=== PATIENT | female | born 1955 | race Caucasian/White ===

== ENCOUNTER → 2023-07-28 | Outpatient (CLI) | payer MEDICARE, OTHER ==
[2023-07-28 10:21] LABS: African American GFR (CKD) >90 (>60 ml/min/1.73 sqM); Blood Urea Nitrogen 17 mg/dL (7-17); Non-African American GFR(CKD) 86 (>60 ml/min/1.73 sqM)
--- NOTE | 2023-07-28 11:56 | CT ---
EXAMINATION TYPE: CT soft tissue neck w con DATE OF EXAM: 07/28/2023 COMPARISON: None HISTORY: 67-year-old female C50.212, breast CA TECHNIQUE: Contiguous axial scanning of the soft tissues of the neck performed with IV Contrast, evangelina ent injected with 100 mL of Isovue 300. Coronal and sagittal reconstructions performed. CT DLP: 1326 mGycm Automated exposure control for dose reduction was used. FINDINGS: Visualized intracranial structures, orbits and globes, paranasal sinuses, and mastoid air cells are w ell pneumatized. Rightward nasal septal deviation. Nasopharynx is clear. There is prominent motion artifact at the level of the nasopharynx and junction with the oropharynx l imiting evaluation here. If concern for any underlying abnormality, direct visualization can be perfo rmed. The glottic and subglottic structures as well as the tracheal column appear clear. The epiglottis and prevertebral soft tissues are satisfactory. No cervical lymphadenopathy identified. There is diffuse lucency and sclerosis throughout the visualized cervical spine. There is a large defect within the left side of the mandible with bridging fixation hardware. Additional extensive heterogeneous density of the visualized sternum. Chest reported separately. IMPRESSION: 1. PROMINENT MOTION AT THE NASOPHARYNX AND JUNCTION WITH THE OROPHARYNX LIMITING ASSESSMENT OF THE CE RVICAL MUCOSAL SPACE HERE. 2. NO CERVICAL LYMPHADENOPATHY OR SUSPICIOUS NECK MASS OTHERWISE IDENTIFIED. 3. FINDINGS SUGGEST DIFFUSE OSSEOUS METASTATIC DISEASE INVOLVING THE VISUALIZED CERVICAL SPINE AND ST [facility]. PREVIOUS RESECTION ALONG THE LEFT SIDE OF THE MANDIBLE.
--- NOTE | 2023-07-28 12:09 | CT ---
EXAMINATION TYPE: CT ChestAbdPelvis w con DATE OF EXAM: 07/28/2023 COMPARISON: None HISTORY: 67-year-old female C50.212, breast cancer TECHNIQUE: Contiguous axial scanning of the chest, abdomen, pelvis performed with IV Contrast, patien t injected with 100 mL of Isovue 300. Delayed images through the kidneys were obtained. Coronal/sagit kathleen reconstructions performed. CT DLP: 1326 mGycm Automated exposure control for dose reduction was used. FINDINGS: Chest: Heart upper limits of normal size without pericardial effusion. LAD and RCA coronary calcifications a re present. Ectatic ascending aorta 3.7 cm. Convex shortness of branching anatomy. No thoracic lymphadenopathy by CT size criteria. Lungs show mild emphysematous change. Bandlike atelectasis or scarring at the right base. No consolid ation or pleural effusion. ABDOMEN: There are approximately 17 hypodense hepatic lesions, largest measuring 1.4 cm. Portal venous system is patent. Heterogeneous nodularity right adrenal gland measuring 1.8 x 1.0 cm there is symmetric uptake and exc retion of contrast from the kidneys. Spleen within normal limits. There is dilatation of the main pancreatic duct up to 5 mm but no distal obstructing lesion seen. Mil d upstream pancreatic atrophy. Mild to moderate atherosclerotic calcifications throughout the abdominal aorta and iliac arteries. Th ere is fusiform dilatation right common iliac artery up to 1.6 cm. No dilated small bowel, free fluid, or free air. No mesenteric or retroperitoneal lymphadenopathy. Normal appendix. Oral contrast progressed to the sigmoid colon. Ztrd-[id number]-[id number] stool in the sigmoid colon and rectum. Sigmoid diverticulosis. No pericolic inflammatory change. PELVIS: Mild circumferential bladder wall thickening. Bladder partially distended. Right-sided pelvic phlebol iths. Uterus anteverted. Both ovaries are visualized. No abnormal fluid collection in the pelvis or p elvic lymphadenopathy seen. BONES: Scattered areas of heterogeneous sclerosis and lucency throughout the pelvis, sacrum and visualized s pine and sternum. Also scattered throughout the bilateral ribs and left scapula. Superior endplate Sc hmorl's nodes or deformities T11 and T12. IMPRESSION: 1. DIFFUSE OSSEOUS METASTATIC DISEASE. 2. ADDITIONAL HEPATIC METASTASES. APPROXIMATELY 17 LIVER METASTASES ARE PRESENT, LARGEST MEASURING 1. 4 CM. 3. A 1.1 X 1.0 CM RIGHT ADRENAL GLAND NODULE MAY ALSO BE SUSPICIOUS. 4. DILATATION OF THE MAIN PANCREATIC DUCT UP TO 5 MM BUT WITHOUT ANY DISTAL OBSTRUCTING LESION SEEN. FINDINGS MAY BE DUE TO SOME UNDERLYING AMPULLARY STENOSIS. CORRELATE WITH TUMOR MARKERS AND AMYLASE/L IPASE LEVELS. ATTENTION ON FOLLOW-UP CT. 5. INCIDENTAL: COPD WITH MILD EMPHYSEMA, SIGMOID DIVERTICULOSIS, MILD TO MODERATE DISTAL COLONIC STOO L. 5. MILD CIRCUMFERENTIAL BLADDER WALL THICKENING MAY BE CHRONIC FOR THE PATIENT. CORRELATE TO EXCLUDE CYSTITIS.
--- NOTE | 2023-07-28 15:44 | NM ---
EXAMINATION TYPE: NM bone scan whole body DATE OF EXAM: 07/28/2023 COMPARISON: Correlation CT same day CLINICAL INDICATION: Female, 67 years old with history of C50.212 breast ca; Delayed whole-body scanning was performed following the injection of 23.2 mCi Tc 99m MDP. Images acq uired 3.5 hours post injection. FINDINGS: Intense foci of increased activity are present throughout the sternum, spine, right greater than left hemipelvis, right greater than left proximal to mid femurs, scattered throughout the ribs, and at th e left shoulder. IMPRESSION: Diffuse osseous metastatic disease.
== END | disposition home or self-care (01) ==
LOC: RADNMMAIN 09:36
PROVIDERS: ATTEND Internal Medicine Hematology & Oncology
DX: C50.212 Malignant neoplasm of upper-inner quadrant of left female breast (principal); M87.80 Other osteonecrosis, unspecified bone; I10 Essential (primary) hypertension; F32.A Depression, unspecified
CPT/HCPCS: 82565; 84520; 70491; 71260; 74177; 36415; 78306; A9503; Q9967

== ENCOUNTER → 2024-01-04 | Outpatient (CLI) | payer MEDICARE, OTHER ==
[2024-01-04 11:01] LABS: African American GFR (CKD) >90 (>60 ml/min/1.73 sqM); Blood Urea Nitrogen 15 mg/dL (7-17); Non-African American GFR(CKD) 79 (>60 ml/min/1.73 sqM)
--- NOTE | 2024-01-04 14:21 | CT ---
EXAMINATION TYPE: CT ChestAbdPelvis w con DATE OF EXAM: 01/04/2024 COMPARISON: 07/28/2023 HISTORY: 68-year-old female C50.212, breat ca/mets TECHNIQUE: Contiguous axial scanning of the chest, abdomen, and pelvis performed with IV Contrast, pa tient injected with 100 mL of Isovue 300. Delayed images through the kidneys were obtained. Coronal/s agittal reconstructions performed. CT DLP: 1051 mGycm Automated exposure control for dose reduction was used. FINDINGS: Chest: The heart is upper limits of normal in size without pericardial effusion. Ectatic ascending aorta 3.6 cm. Mild atherosclerotic calcifications throughout. Conventional arch ves tasha branching anatomy. No thoracic lymphadenopathy by CT size criteria. Mild emphysematous change. Minimal right apical pleural parenchymal scarring is unchanged. Some mild strandy atelectasis or scarring at the lung bases. No consolidation or pleural effusion. ABDOMEN: Numerous hypodense hepatic lesions are redemonstrated. A few smaller lesions may be new. Other lesion s that were previously present show slight interval increase in size measuring up to 1.7 cm inferior right liver lobe versus 1.4 cm, previously. 1.4 cm left liver lobe versus 1.1 cm, previously. Portal venous system is patent. There appears to be progressive dilatation of the main pancreatic duct canal to 1.1 cm versus 5 mm, p reviously. Consider ERCP evaluation. Bile duct is also prominent now 9 mm, increased from prior. Port al venous system is patent. Gallbladder shows no abnormal distention. Right adrenal nodularity currently 1.8 x 1.3 cm versus 1.8 x 1.0 cm, previously. Not significantly ch anged. Bilateral extra renal pelvis. Symmetric uptake and excretion of contrast from both kidneys. Left adrenal gland, and spleen within normal limits. Moderate atherosclerotic calcifications throughout the abdominal aorta and iliac arteries. No dilated small bowel, free fluid, or free air. No mesenteric or retroperitoneal adenopathy. Normal appendix. No significant stool burden. Oral contrast progressed to the rectum. Pelvis: Moderate circumferential bladder wall thickening. Uterus anteverted. Suspect visualization of the ova elgin. Pelvic phleboliths. No abnormal fluid collection in the pelvis or pelvic lymphadenopathy. Bones: Demonstrated diffuse mixed sclerosis and lucencies throughout the visualized osseous structures. IMPRESSION: 1. REDEMONSTRATED DIFFUSE OSSEOUS METASTATIC DISEASE WITH OVERALL SIMILAR APPEARANCE OF THE BONES COM PARED TO 07/28/2023. 2. HEPATIC METASTASES SHOW SLIGHT INTERVAL INCREASE IN BOTH NUMBER AND SIZE OF LESIONS. MEASURING UP TO 1.7 CM CURRENTLY VERSUS 1.4 CM, PREVIOUSLY. 3. PROGRESSIVE DILATATION OF THE BILE DUCT (NOW 9 MM) WELL THE MAIN PANCREATIC DUCT. THE MAIN P ANCREATIC DUCT IS NOW 11 MM VERSUS 5 MM, PREVIOUSLY. NO OBVIOUS OBSTRUCTING LESION IS IDENTIFIED. CON CINDER BLOCK MASON FURTHER ERCP EVALUATION IF INDICATED. 4. SIMILAR TO SLIGHTLY LARGER RIGHT ADRENAL NODULARITY AT 1.8 X 1.3 CM.
== END | disposition home or self-care (01) ==
LOC: RADCTMAIN 10:18
PROVIDERS: ATTEND Internal Medicine Hematology & Oncology
DX: C78.7 Secondary malignant neoplasm of liver and intrahepatic bile duct (principal); C50.212 Malignant neoplasm of upper-inner quadrant of left female breast; M87.80 Other osteonecrosis, unspecified bone; I10 Essential (primary) hypertension; F32.A Depression, unspecified
CPT/HCPCS: 82565; 84520; 71260; 74177; 36415; Q9967

== ENCOUNTER → 2024-02-22 | Outpatient (CLI) | payer MEDICARE, OTHER ==
--- NOTE | 2024-03-20 09:22 | CT ---
Camila Langford [id number] : 1955 Age/Gender: 68Y, F EXAMINATION TYPE: CT abdomen pelvis w con CT DLP: 846 mGycm, Automated exposure control for dose reduction was used. DATE OF EXAM: 02/29/2024 3:35 PM COMPARISON: 01/04/2024 , 07/28/2023. CLINICAL INDICATION: Breast cancer TECHNIQUE: Axial CT abdomen pelvis w con;Sagittal and coronal reformats were created on a separate w orkstation. Contrast used: 100 cc of Isovue 300 Oral contrast used: (none if empty) FINDINGS: LOWER CHEST: Unremarkable ABDOMEN LIVER: Scattered metastatic lesions throughout the liver which appear more numerous and larger compar ed to prior example includes 17 mm left hepatic lobe lesion previously 13 mm. Right hepatic lobe candelaria nant lesion measuring 17 mm on prior now measuring 21 mm. Evaluation of other smaller lesions slight ly difficult given differences in bolus timing. There may be new lesions scattered throughout the brent[place] er. GALLBLADDER AND BILE DUCTS: Unremarkable. PANCREAS: Similar dilation of the main pancreatic duct up to 10 mm. SPLEEN: Unremarkable. ADRENAL GLANDS: Right adrenal gland thickening measuring 22 x 13 mm is difficult to compare given dif ferences in slice selection. Possibly slightly increased in size from immediate prior, from 07/28/2023 has definitely increased in size prior measuring 18 x 10 mm. KIDNEYS AND URETERS: No evidence of hydronephrosis or renal calculus. The ureters are unremarkable. PELVIS BLADDER: Unremarkable REPRODUCTIVE: Unremarkable. ABDOMEN & PELVIS STOMACH AND BOWEL: No evidence of bowel obstruction. PERITONEUM/RETROPERITONEUM: No evidence of pneumoperitoneum or free fluid. VASCULATURE: Moderate atherosclerotic calcifications are present throughout the abdominal aorta and i ts branches. No evidence of aortic aneurysm. MUSCULOSKELETAL: Abnormal appearance osseous structures compatible with metastatic disease LYMPH NODES: No gross evidence for lymphadenopathy. SOFT TISSUE/ABDOMINAL WALL: Unremarkable IMPRESSION: 1. Enlarging lesions throughout the liver with possible new small lesions concerning for progression of disease. 2. Diffuse osseous metastatic disease present with diffuse abnormal appearance of the osseous struct ures. 3. Enlarging right adrenal nodule concerning for progression of disease.
== END | disposition home or self-care (01) ==
LOC: RADCTMAIN 12:00
PROVIDERS: ATTEND Internal Medicine Hematology & Oncology
DX: C50.212 Malignant neoplasm of upper-inner quadrant of left female breast (principal); M87.80 Other osteonecrosis, unspecified bone; F32.A Depression, unspecified; R16.0 Hepatomegaly, not elsewhere classified
CPT/HCPCS: 74177; 36415; Q9967

== ENCOUNTER → 2024-06-10 | Outpatient (CLI) | payer MEDICARE, OTHER ==
[2024-06-10 11:48] LABS: African American GFR (CKD) 72 (>60 ml/min/1.73 sqM); Blood Urea Nitrogen 16 mg/dL (7-17); Non-African American GFR(CKD) 63 (>60 ml/min/1.73 sqM)
--- NOTE | 2024-06-10 14:02 | CT ---
EXAMINATION TYPE: CT soft tissue neck w con CT DLP: 1002.5 mGycm, Automated exposure control for dose reduction was used. DATE OF EXAM: 06/10/2024 1:26 PM COMPARISON: CT soft tissue neck 07/28/2023, nuclear medicine bone scan 07/28/2023. CLINICAL INDICATION:Female, 68 years old with history of [id number] Breast cancer; [facility], Stage IV breast c a. TECHNIQUE: Standard enhanced CT of the neck following intravenous administration of 100 cc of Isovue 300. Axial sections with coronal and sagittal reformats were obtained. FINDINGS: Brain: Visualized portions are grossly unremarkable. Orbits: Unremarkable Sinuses: Grossly unremarkable. Rightward nasal septal deviation. Suprahyoid Neck: The oropharynx, oral cavity, parapharyngeal and retropharyngeal spaces are clear and symmetric. The nasopharynx is unremarkable. Infrahyoid Neck: The larynx, hypopharynx, and supraglottic area are clear and symmetric. Parotid Glands: Parotid gland is unremarkable. Atrophy and/or postsurgical change of the left parotid gland. Submandibular Glands: Unremarkable. Musculoskeletal: No acute osseous pathology. There is again diffuse lucency and sclerosis throughout the visualized cervical spine. Multilevel degenerative disc disease of the cervical spine. Increased heterogenous sclerotic appearance of the C3 vertebral body. Redemonstration of large defect within th e left side of the mandible with bridging fixation hardware. Additional extensive heterogenous appear ance of the visualized sternum. Lymph nodes: No pathologically enlarged lymph nodes identified.. Vascular structures: Minimal atherosclerotic calcifications of the internal carotid arteries. Thoracic Inlet/airway: Airway is patent. The lung apices are clear. Soft tissues/Thyroid: Thyroid and remainder of the soft tissues are unremarkable. Other: none. IMPRESSION 1. No cervical lymphadenopathy or suspicious neck mass. 2. Diffuse osseous metastatic disease involving the visualized cervical spine and sternum redemonstra rome. There are suggested progression of osseous metastasis with new sclerotic appearance of the C3 ve rtebral body. Previous resection along the left side of the mandible redemonstrated. [facility], , 06/10/2024 1:59 PM
--- NOTE | 2024-06-10 16:43 | CT ---
EXAMINATION TYPE: CT ChestAbdPelvis w con CT DLP: 1002.5 mGycm, Automated exposure control for dose reduction was used. DATE OF EXAM: 06/10/2024 1:26 PM COMPARISON: CT chest abdomen pelvis 01/04/2024, 07/28/2023, CT abdomen and pelvis 03/16/2024 CLINICAL INDICATION:Female, 68 years old with history of [id number] Breast cancer; PH, Stage IV breast c a. Technique: Multiple axial images of the chest, abdomen, and pelvis were obtained following the intrav enous administration of 100 mL Isovue-300. Oral contrast was administered. Two-dimensional coronal an d sagittal reconstructions were obtained. Findings: CHEST: LUNGS/ PLEURA: No pleural effusion, pneumothorax, focal consolidation. Few scattered regions of linea r scarring and/or atelectasis. No suspicious pulmonary nodule or mass. AIRWAY: Patent and unremarkable.. HEART: Size within normal limits.No pericardial effusion. Small coronary artery calcifications. MEDIASTINUM: No evidence of adenopathy. VASCULATURE: Stable aneurysm dilatation ascending thoracic aorta measuring up to 4.0 cm. Mild athero sclerotic calcification of the aorta and its branches. MUSCULOSKELETAL: No acute osseous abnormalities. Diffuse mixed sclerotic/lucent metastasis throughout the visualized osseous structures are demonstrated. Dextro scoliotic curvature of the lumbar spine. SOFT TISSUES/LYMPH NODES: Unremarkable. LOWER NECK: No significant findings. ABDOMEN: ABDOMEN LIVER: Decreased size and number of hypodense hepatic metastasis from prior examination with largest now measuring up to 8 mm within the right hepatic lobe (series 5, image 63). GALLBLADDER AND BILE DUCTS: Bladder appears unremarkable. Mild dilatation of the common bile duct to 9 mm. No intrahepatic biliary ductal dilatation. PANCREAS: Similar dilatation of main pancreatic duct up to 10 mm. SPLEEN: Unremarkable. ADRENAL GLANDS: Left adrenal gland is unremarkable. Similar mild thickening of the right adrenal glan d. KIDNEYS AND URETERS: No evidence of hydronephrosis or renal calculus. The kidneys enhance symmetrical ly. Contrast is demonstrated within both collecting systems on the delayed phase. PELVIS BLADDER: Unremarkable REPRODUCTIVE: Retroverted uterus. ABDOMEN & PELVIS STOMACH AND BOWEL: Stomach and duodenum are unremarkable. Enteric contrast reaches the ascending colo n. Distal colonic diverticulosis without evidence for acute diverticulitis. No evidence of bowel obst ruction. PERITONEUM: No evidence of pneumoperitoneum or free fluid. VASCULATURE: Moderate atherosclerotic calcifications are present throughout the abdominal aorta and i ts branches. No abdominal aortic aneurysm. Pelvic phleboliths. MUSCULOSKELETAL: No acute osseous abnormalities. Diffuse mixed sclerotic/lucent metastasis throughout the visualized osseous structures are demonstrated. Prominent Schmorl's node involving the superior endplates of the T12 and L1 vertebral bodies. LYMPH NODES: No evidence for lymphadenopathy. SOFT TISSUE/ABDOMINAL WALL: Tiny fat filled umbilical hernia. IMPRESSION: 1. Decreased size and number of hepatic metastasis from prior examination suggesting positive respon se to therapy. 2. Redemonstration of diffuse osseous metastatic disease which is overall similar to prior exam. 3. Similar extrahepatic biliary ductal and main pancreatic ductal dilatation. No obvious obstructing lesion identified. Consider further evaluation with ERCP as clinically indicated. 4. Stable thickening of the right adrenal gland. [facility], , 06/10/2024 4:40 PM
== END | disposition home or self-care (01) ==
LOC: RADCTMAIN 10:52
PROVIDERS: ATTEND Internal Medicine Hematology & Oncology
DX: C50.212 Malignant neoplasm of upper-inner quadrant of left female breast (principal); M87.80 Other osteonecrosis, unspecified bone; I10 Essential (primary) hypertension; F32.A Depression, unspecified; C79.51 Secondary malignant neoplasm of bone; I65.29 Occlusion and stenosis of unspecified carotid artery; J34.2 Deviated nasal septum; C78.7 Secondary malignant neoplasm of liver and intrahepatic bile duct; K42.9 Umbilical hernia without obstruction or gangrene
CPT/HCPCS: 82565; 84520; 70491; 71260; 74177; 36415; Q9967

== ENCOUNTER → 2024-09-02 | Outpatient (CLI) | payer MEDICARE, OTHER ==
[2024-09-02 13:36] LABS: African American GFR (CKD) 85 (>60 ml/min/1.73 sqM); Blood Urea Nitrogen 15 mg/dL (7-17); Non-African American GFR(CKD) 73 (>60 ml/min/1.73 sqM)
--- NOTE | 2024-09-02 14:24 | CT ---
EXAMINATION TYPE: CT ChestAbdPelvis w con DATE OF EXAM: 09/02/2024 2:00 PM COMPARISON: 06/10/2024 CLINICAL INDICATION: Female, 69 years old with history of C50.212 BREAST CANCER; [facility], Breast cancer. Technique: CT ChestAbdPelvis w con; Multiple axial images were obtained. Two-dimensional coronal and sagittal reconstructions were obtained. Contrast used:100ml mL of Isovue 300 with IV Contrast, (None if empty) Oral contrast used: with Oral Contrast CT DLP: 506.3 mGycm, Automated exposure control for dose reduction was used. Findings: . CHEST: LUNGS/ PLEURA: No pleural effusion, pneumothorax, focal consolidation. Few scattered regions of linea r scarring and/or atelectasis. No suspicious pulmonary nodule or mass. AIRWAY: Patent and unremarkable.. HEART: Size within normal limits.No pericardial effusion. Small coronary artery calcifications. MEDIASTINUM: No evidence of adenopathy. VASCULATURE: Stable aneurysm dilatation ascending thoracic aorta measuring up to 4.0 cm. Mild athero sclerotic calcification of the aorta and its branches. MUSCULOSKELETAL: No acute osseous abnormalities. Diffuse mixed sclerotic/lucent metastasis throughout the visualized osseous structures are demonstrated. Dextro scoliotic curvature of the lumbar spine. SOFT TISSUES/LYMPH NODES: Unremarkable. LOWER NECK: No significant findings. ABDOMEN: ABDOMEN LIVER: Hypodense lesions in liver have increased in size and number compared to prior. Example includ es right hepatic lobe segment 6 18 mm previously 5 mm, left hepatic lobe 25 mm previously 3 mm. GALLBLADDER AND BILE DUCTS: Bladder appears unremarkable. Similar mild dilatation of the common bile duct to 9 mm. No intrahepatic biliary ductal dilatation. PANCREAS: Stable dilatation of main pancreatic duct up to 10 mm. SPLEEN: Unremarkable. ADRENAL GLANDS: Left adrenal gland is unremarkable. Stable mild thickening of the right adrenal gland . KIDNEYS AND URETERS: No evidence of hydronephrosis or renal calculus. The kidneys enhance symmetrical ly. Contrast is demonstrated within both collecting systems on the delayed phase. PELVIS BLADDER: Unremarkable REPRODUCTIVE: Retroverted uterus. ABDOMEN & PELVIS STOMACH AND BOWEL: Scattered colonic diverticula. Stomach and duodenum are unremarkable. No evidence of bowel obstruction. PERITONEUM: No evidence of pneumoperitoneum or free fluid. VASCULATURE: Moderate atherosclerotic calcifications are present throughout the abdominal aorta and i ts branches. No abdominal aortic aneurysm. Pelvic phleboliths. MUSCULOSKELETAL: No acute osseous abnormalities. Diffuse mixed sclerotic/lucent metastasis throughout the visualized osseous structures are demonstrated. Prominent Schmorl's node involving the superior endplates of the T12 and L1 vertebral bodies. LYMPH NODES: No evidence for lymphadenopathy. SOFT TISSUE/ABDOMINAL WALL: Tiny fat filled umbilical hernia. IMPRESSION: 1. Progression of metastatic disease within the liver with increasing size and number of lesions. Co nsideration for PET/CT may be of benefit to fine more areas of active metastatic disease. 2. Redemonstration of diffuse osseous metastatic disease which is overall similar to prior exam. 3. Stable extrahepatic biliary ductal and main pancreatic ductal dilatation. No obvious obstructing lesion identified. Consider further evaluation with ERCP as clinically indicated. 4. Stable thickening of the right adrenal gland. [facility], , 09/02/2024 2:22 PM
== END | disposition home or self-care (01) ==
LOC: RADCTMAIN 11:21
PROVIDERS: ATTEND Internal Medicine Hematology & Oncology
DX: C50.212 Malignant neoplasm of upper-inner quadrant of left female breast (principal); C78.7 Secondary malignant neoplasm of liver and intrahepatic bile duct; C79.51 Secondary malignant neoplasm of bone; M87.80 Other osteonecrosis, unspecified bone; I10 Essential (primary) hypertension; F32.A Depression, unspecified
CPT/HCPCS: 82565; 84520; 71260; 74177; 36415; Q9967

== ENCOUNTER → 2024-09-20 | Outpatient (CLI) | payer MEDICARE, OTHER ==
--- NOTE | 2024-09-20 12:08 | CA ---
Transthoracic Echo Report Name: Camila Langford Age: 69 Gender: F : 1955 Exam Date: 09/20/2024 07:53 Exam Location: [facility] Ht (in): 59 Wt (lb): 117 Ordering Physician: Julita Muhammad MD Attending/Referring Phys: Julita Muhammad MD Acetylene Torch Solderer Bel Acosta RDCS Procedure CPT: Indications: Z01.818 ENCOUNTER FOR OTHER PREPROCEDURAL EXAMINAT Cardiac Hx: Technical Quality: Good Contrast 1: Total Dose (mL): Contrast 2: Total Dose (mL): MEASUREMENTS (Male / Female) Normal Values 2D ECHO LV Diastolic Diameter PLAX 3.6 cm 4.2 - 5.9 / 3.9 - 5.3 cm LV Systolic Diameter PLAX 2.0 cm IVS Diastolic Thickness 1.3 cm 0.6 - 1.0 / 0.6 - 0.9 cm LVPW Diastolic Thickness 1.1 cm 0.6 - 1.0 / 0.6 - 0.9 cm LV Relative Wall Thickness 0.7 RV Internal Dim ED PLAX 2.5 cm LA Systolic Diameter LX 3.0 cm 3.0 - 4.0 / 2.7 - 3.8 cm LV Diastolic Volume MOD BP 43.4 cm??? 67 - 155 / 56 - 104 cm??? LV Systolic Volume MOD BP 10.1 cm??? 22 - 58 / 19 - 49 cm??? LV Ejection Fraction MOD BP 76.7 % >= 55 % LV Cardiac Index MOD BP 1536.3 cm???/min???m??? LV Diastolic Volume MOD 4C 45.7 cm??? LV Systolic Volume MOD 4C 13.3 cm??? LV Ejection Fraction MOD 4C 70.8 % LV Cardiac Index MOD 4C 1490.9 cm???/min???m??? LV Diastolic Length 4C 6.6 cm LV Systolic Length 4C 5.2 cm LV Diastolic Volume MOD 2C 41.3 cm??? LV Systolic Volume MOD 2C 7.8 cm??? LV Ejection Fraction MOD 2C 81.1 % LV Cardiac Index MOD 2C 1543.5 cm???/min???m??? LV Diastolic Length 2C 6.7 cm LV Systolic Length 2C 5.2 cm LA Volume 17.9 cm??? 18 - 58 / 22 - 52 cm??? LA Volume Index 11.9 cm???/m??? 16 - 28 cm???/m??? M-MODE Aortic Root Diameter MM 3.1 cm LA Systolic Diameter MM 2.9 cm LA Ao Ratio MM 0.9 AV Cusp Separation MM 1.7 cm DOPPLER MV Area PHT 2.1 cm??? Mitral E Point Velocity 52.9 cm/s Mitral A Point Velocity 82.6 cm/s Mitral E to A Ratio 0.6 MV Deceleration Time 366.5 ms TR Peak Velocity 243.7 cm/s TR Peak Gradient 23.8 mmHg Right Ventricular Systolic Press 28.2 mmHg FINDINGS Left Ventricle Left ventricular ejection fraction is estimated at 55-60%. Mildly increased septal wall thickness. Mildly increased posterior wall thickness. Normal left ventricular systolic function with no obvious regional wall motion abnormalities. Left ventricular cavity size normal. Average global longitudinal strain of the left ventricle with a value of - 18.9 %. Right Ventricle Normal right ventricular size and function. Right ventricular systolic pressure within normal limits. Right Atrium Normal right atrial size. Left Atrium Normal left atrial size. Mitral Valve Structurally normal mitral valve. Trace to mild mitral regurgitation.no mitral stenosis. Aortic Valve Trileaflet aortic valve. No aortic valve stenosis or regurgitation. Tricuspid Valve Structurally normal tricuspid valve. Mild tricuspid regurgitation. No tricuspid stenosis. Pulmonic Valve Structurally normal pulmonic valve. Trace pulmonic regurgitation. No pulmonic stenosis. Pericardium No pericardial or pleural effusion. Aorta Normal size aortic root and proximal ascending aorta. CONCLUSIONS Left ventricular ejection fraction 55-60% Mildly increased left ventricular wall thickness RVSP 28 Trace mild mitral regurgitation Mild tricuspid regurgitation Previewed by: Dr. Angel Miles DO (Electronically Signed) Final Date: 20 September 2024 12:07
== END | disposition home or self-care (01) ==
LOC: RADECHMAIN 08:48
PROVIDERS: ATTEND Internal Medicine Hematology & Oncology
DX: Z01.818 Encounter for other preprocedural examination (principal); C50.212 Malignant neoplasm of upper-inner quadrant of left female breast; I08.1 Rheumatic disorders of both mitral and tricuspid valves; M87.80 Other osteonecrosis, unspecified bone; I10 Essential (primary) hypertension; F32.A Depression, unspecified
CPT/HCPCS: 93306

== ENCOUNTER 2024-10-14 16:51 | Emergency (ER) | payer MEDICARE, OTHER ==
[2024-10-14 17:10] VITALS: RESP 18
[2024-10-14] MEDS: LIDOCAINE 1% INJ 10MG/ML (20 ML MDV) SQ ONE (18:01)
[2024-10-14] MEDS: TOPICAL SKIN ADHESIVE 1 EACH AMP TOPICAL ONE (18:02)
[2024-10-14] MEDS: HYDROmorphone 0.5 MG/0.5 ML SYRINGE IVP STA ×2 (18:08→19:46)
[2024-10-14 18:18] LABS: Basophils % (A) 0 %; Eosinophils # (A) 0.2 k/uL (0-0.7); Eosinophils % (A) 2 %; HCT 42.7 % (34.0-46.0); HGB 13.7 gm/dL (11.4-16.0); Lymphocytes # (A) 0.7 k/uL (1.0-4.8); Lymphocytes % (A) 8 %; MCH 32.5 pg (25.0-35.0); MCV 101.8 fL (80.0-100.0); Macrocytosis Slight; Mean Platelet Volume 7.7; Monocytes # (A) 0.5 k/uL (0-1.0); Monocytes % (A) 6 %; Neutrophils % (A) 83 %; Platelet Count 325 k/uL (150-450); RDW 14.2 % (11.5-15.5); WBC 8.4 k/uL (3.8-10.6)
--- NOTE | 2024-10-14 18:18 | ED ---
Fall HPI - General Chief Complaint: Fall Stated Complaint: fell facial injuries Time Seen by Provider: 10/14/24 17:03 Source: patient, RN notes reviewed Mode of arrival: ambulatory Limitations: no limitations - History of Present Illness Initial Comments: This is a 69-year-old female with history of metastatic breast cancer and left jaw resection presenting with trip and fall onto face. Patient states she leaned over too far, falling forward and striking the left side of her face on asphalt without loss of consciousness. Endorses swelling of left side of face, damage to teeth and upper lip pain/tenderness as well as frontal headache (7/10). Patient denies use of blood thinners. States she is currently receiving chemotherapy for her metastatic breast cancer. Patient denies loss of consciousness, neck pain, other injuries, extremity weakness/paresthesia. Denies chest pain, dyspnea, dizziness, visual changes, nausea/vomiting. MD Complaint: fall Onset/Timin -: hour(s) Fall From: standing When Fall Occurred: 1 hour [employer] Fall Witnessed: yes, by family Place Fall Occurred: street Loss of Consciousness: none Prolonged Down Time?: no Symptoms Prior to Fall: none Location: face Severity scale (1-10): 7 Quality: sharp Context: tripped/slipped Associated Symptoms: headache - Related Data Home Medications Medication Instructions Recorded Confirmed Capecitabine 500mg 1,500 mg PO DIRECTED 10/14/24 10/14/24 Gabapentin [Neurontin] 300 mg PO TID 10/14/24 10/14/24 Sertraline [Zoloft] 100 mg PO DAILY 10/14/24 10/14/24 oxyCODONE HCL [oxyCODONE HCL (IR)] 30 mg PO Q4H PRN 10/14/24 10/14/24 Allergies Allergy/AdvReac Type Severity Reaction Status Date / Time No Known Allergies Allergy Verified 10/14/24 20:16 Review of Systems ROS Statement: Those systems with pertinent positive or pertinent negative responses have been documented in the HPI. ROS Other: All systems not noted in ROS Statement are negative. Past Medical History Past Medical History: Cancer Additional Past Medical History / Comment(s): metatstatic breast cancer History of Any Multi-Drug Resistant Organisms: None Reported Additional Past Surgical History / Comment(s): jaw resection Past Psychological History: No Psychological Hx Reported, Depression Smoking Status: Current every day smoker Past Alcohol Use History: Daily Past Drug Use History: Marijuana General Exam General appearance: alert, in no apparent distress Head exam: Present: atraumatic, normocephalic, normal inspection Eye exam: Present: normal appearance, PERRL, EOMI. Absent: scleral icterus, conjunctival injection, periorbital swelling, periorbital tenderness ENT exam: Present: mucous membranes moist, TM's normal bilaterally, normal external ear exam (Negative Causey sign), other (Positive moderate left maxillary edema without TTP. Loose/painful bilateral frontal incisors and fractured/damage right lateral incisor. Deep 3 cm horizontal laceration noted on upper inner lip. Several small lacerations noted on anterior aspect of upper lip) Neck exam: Present: normal inspection. Absent: tenderness, meningismus, lymphadenopathy Respiratory exam: Present: normal lung sounds bilaterally. Absent: respiratory distress, wheezes, rales, rhonchi, stridor, chest wall tenderness, accessory muscle use, decreased breath sounds, prolonged expiratory Cardiovascular Exam: Present: regular rate, normal rhythm, normal heart sounds. Absent: systolic murmur, diastolic murmur, rubs, gallop, clicks GI/Abdominal exam: Present: soft, normal bowel sounds. Absent: distended, tenderness, guarding, rebound, rigid Extremities exam: Present: normal inspection, full ROM, normal capillary refill, other (Distal neurovascular motor function of all upper extremities intact). Absent: tenderness, pedal edema, joint swelling, calf tenderness Back exam: Present: normal inspection. Absent: tenderness, paraspinal tenderness, vertebral tenderness Neurological exam: Present: alert, oriented X3, CN II-XII intact. Absent: motor sensory deficit Psychiatric exam: Present: normal affect, normal mood Skin exam: Present: warm, dry, intact, normal color. Absent: rash Course Vital Signs 10/14/24 10/14/24 17:03 20:12 Temperature 98.6 F Pulse Rate 67 57 L Respiratory 18 18 Rate Blood Pressure 154/89 139/80 O2 Sat by Pulse 97 96 Oximetry Procedures - Laceration Laceration #1 Consent Obtained: verbal consent Indication: laceration Site: lip Size (cm): 3 Description: linear, irregular Depth: simple, single layer Anesthetic Used: lidocaine 1% Anesthesia Technique: local infiltration Amount (mls): 5 Pre-repair: wound explored, irrigated extensively Type of Sutures: vicryl Size of Sutures: 5-0 Number of Sutures: 8 Technique: running Patient Tolerated Procedure: well, no complications Laceration #2 Consent Obtained: verbal consent Indication: laceration Site: face Size (cm): 1 Description: irregular Depth: simple, single layer Pre-repair: wound explored, irrigated extensively Complications: pain Patient Tolerated Procedure: well, no complications Additional Comments: Several small irregular, shallow facial lacerations of upper lip cleaned copiously with antibacterial soap and water and adhered with Dermabond. Medical Decision Making - Medical Decision Making Was pt. sent in by a medical professional or institution (, PA, [employer], urgent care, hospital, or half-way...) When possible be specific @ -No Did you speak to anyone other than the patient for history (EMS, parent, family, police, friend...)? What history was obtained from this source @ -No Did you review nursing and triage notes (agree or disagree)? Why? @ -I reviewed and agree with nursing and triage notes Were old charts reviewed (outside hosp., previous admission, EMS record, old EKG, old radiological studies, urgent care reports/EKG's, half-way records)? Report findings @ -No old charts were reviewed Differential Diagnosis (chest pain, altered mental status, abdominal pain women, abdominal pain men, vaginal bleeding, weakness, fever, dyspnea, syncope, headache, dizziness, GI bleed, back pain, seizure, CVA, palpatations, mental health, musculoskeletal)? @ -Differential Musculoskeletal Muscular strain, contusion, ligament sprain, fracture, arthritis, septic arthritis, bursitis, cellulitis, muscle spasm, nerve compression, DVT, arterial occlusion, herpes zoster, electrolyte abnormality, tumor.... This is not meant t o be in all inclusive list EKG interpreted by me (3pts min.). @ -Not done X-rays interpreted by me (1pt min.). @ -None done CT interpreted by me (1pt min.). @ -Head/cervical spine CT shows 1.5 x 1.0 cm subdural hematoma in the anterior right frontal region without mass effect. Cervical spine shows extensive lytic and sclerotic areas suspicious for metastatic disease. Facial CT shows no acute osseous abnormality or fracture. U/S interpreted by me (1pt. min.). @ -None done What testing was considered but not performed or refused? (CT, X-rays, U/S, labs)? Why? @ -None What meds were considered but not given or refused? Why? @ -None Did you discuss the management of the patient with other professionals (professionals i.e. , PA, [employer] LA[employer], lab, RT, psych nurse, renal social worker, termite inspector, teacher, tactical intelligence officer, welfare case worker)? Give summary @ -Spoke to Dr. English from [facility] who accepted patient. Was smoking cessation discussed for >3mins.? @ -No Was critical care preformed (if so, how long)? @ -No Were there social determinants of health that impacted care today? How? (Homelessness, low income, unemployed, alcoholism, drug addiction, trans portation, low edu. Level, literacy, decrease access to med. care, long term, rehab)? @ -No Was there de-escalation of care discussed even if they declined (Discuss DNR or withdrawal of care, Hospice)? DNR status @ -No What co-morbidities impacted this encounter? (DM, HTN, Smoking, COPD, CAD, Cancer, CVA, ARF, Chemo, Hep., AIDS, mental health diagnosis, sleep apnea, morbid obesity)? @ -Metastatic breast CA, chemotherapy Was patient admitted / discharged? Hospital course, mention meds given and route, prescriptions, significant lab abnormalities, going to OR and other pertinent info. @ -Lab work generally unremarkable. Head/cervical spine CT shows 1.5 x 1.0 cm subdural hematoma in the anterior right frontal region without mass effect. Cervical spine shows extensive lytic and sclerotic areas suspicious for metastatic disease. Facial CT shows no acute osseous abnormality or fracture. Patient initially provided IV Dilaudid. Additional IV Dilaudid provided for suturing of upper lip. Spoke to Dr. English from [facility] who accepted patient. Patient will be transferred via EMS for further evaluation and treatment. Discussed patient with Dr. Martinez. Undiagnosed new problem with uncertain prognosis? @ -Subdural hematoma Drug Therapy requiring intensive monitoring for toxicity (Heparin, Nitro, Insulin, Cardizem)? @ -No Were any procedures done? @ -Suturing of right upper inner lip laceration performed under sterile conditions Diagnosis/symptom? @ -Subdural hematoma, lip laceration Acute, or Chronic, or Acute on Chronic? @ -Acute Uncomplicated (without systemic symptoms) or Complicated (systemic symptoms)? @ -Uncomplicated Side effects of treatment? @ -No Exacerbation, Progression, or Severe Exacerbation? @ -No Poses a threat to life or bodily function? How? (Chest pain, [place], [place], pneumonia, PE, COPD, DKA, ARF, appy, cholecystitis, CVA, Diverticulitis, Homicidal, Suicidal, threat to staff... and all critical care pts) @ -Subdural hematoma - Lab Data Result diagrams: 10/14/24 18:07 10/14/24 18:07 Lab Results 10/14/24 10/14/24 Range/Units 18:07 18:07 WBC 8.4 (3.8-10.6) k/uL RBC 4.20 (3.80-5.40) m/uL Hgb 13.7 (11.4-16.0) gm/dL Hct 42.7 (34.0-46.0) % MCV 101.8 H (80.0-100.0) fL MCH 32.5 (25.0-35.0) pg MCHC 32.0 (31.0-37.0) g/dL RDW 14.2 (11.5-15.5) % Plt Count 325 (150-450) k/uL MPV 7.7 Neutrophils % 83 % Lymphocytes % 8 % Monocytes % 6 % Eosinophils % 2 % Basophils % 0 % Neutrophils # 7.0 (1.3-7.7) k/uL Lymphocytes # 0.7 L (1.0-4.8) k/uL Monocytes # 0.5 (0-1.0) k/uL Eosinophils # 0.2 (0-0.7) k/uL Basophils # 0.0 (0-0.2) k/uL Macrocytosis Slight Sodium 135 L (137-145) mmol/L Potassium 4.6 (3.5-5.1) mmol/L Chloride 99 (98-107) mmol/L Carbon Dioxide 29 (22-30) mmol/L Anion Gap 7 mmol/L BUN 18 H (7-17) mg/dL Creatinine 0.72 (0.52-1.04) mg/dL Est GFR (CKD-EPI)AfAm >90 (>60 ml/min/1.73 sqM) Est GFR (CKD-EPI)NonAf 87 (>60 ml/min/1.73 sqM) Glucose 103 H (74-99) mg/dL Calcium 9.7 (8.4-10.2) mg/dL Total Bilirubin 0.8 (0.2-1.3) mg/dL AST 54 H (14-36) U/L ALT 29 (4-34) U/L Alkaline Phosphatase 60 (38-126) U/L Total Protein 7.2 (6.3-8.2) g/dL Albumin 4.6 (3.5-5.0) g/dL Disposition Clinical Impression: Subdural hematoma, acute, Fall, Lip laceration Disposition: OTHER INSTITUTION NOT DEFINED Condition: Good Instructions (If sedation given, give patient instructions): Fall Prevention for Older Adults (ED) Is patient prescribed a controlled substance at d/c from ED?: No Referrals: None,Stated [Primary Care Provider] - 1-2 days Roxi Valle DO [Doctor of Osteopathic Medicine] - 1-2 days Time of Disposition: 20:30 - Out of Hospital Transfer - Req. Specs Out of Hospital Transfer - Requested Specifics: Other Emergency Center ([facility])
[2024-10-14 18:33] LABS: ALT 29 U/L (4-34); African American GFR (CKD) >90 (>60 ml/min/1.73 sqM); Anion Gap 7 mmol/L; Blood Urea Nitrogen 18 mg/dL (7-17); Calcium 9.7 mg/dL (8.4-10.2); Carbon Dioxide 29 mmol/L (22-30); Chloride 99 mmol/L (98-107); Glucose 103 mg/dL (74-99); Non-African American GFR(CKD) 87 (>60 ml/min/1.73 sqM); Sodium 135 mmol/L (137-145); Total Bilirubin 0.8 mg/dL (0.2-1.3)
[2024-10-14 18:44] LABS: Albumin 4.6 g/dL (3.5-5.0); Potassium 4.6 mmol/L (3.5-5.1); Total Protein 7.2 g/dL (6.3-8.2)
[2024-10-14 18:45] LABS: AST 54 U/L (14-36); Alkaline Phosphatase 60 U/L (38-126)
--- NOTE | 2024-10-14 18:51 | CT ---
EXAMINATION TYPE: CT brain alenaine wo con DATE OF EXAM: 10/14/2024 6:35 PM COMPARISON: None. CLINICAL INDICATION: Female, 69 years old with history of Fall face first onto asphalt, Fall face fir st onto asphalt, swelling and lacs to nose and left side of face., pain TECHNIQUE: CT of the brain is performed utilizing 3 mm thick sections through the posterior fossa and 3 mm thick sections through the remaining calvarium. Study is performed within 24 hours of arrival to the hospital. Contrast used: mL of , (none if empty) CT DLP: combined DLP 1034.3 mGycm, Automated exposure control for dose reduction was used. FINDINGS: There is a hyperdense collection within the extra-axial space adjacent to the falx in the anterior ri ght frontal region measuring 1.5 x 1.0 cm. Series 201 image 36. Findings compatible with acute subdur al hematoma. No mass effect on the adjacent brain is evident. There may be some minimal extension joe ng the falx. No mass lesion is evident. No acute infarcts are evident. Periventricular white matter hypodensity is present likely on the bas is of chronic white matter ischemic changes. Ventricles and sulci are prominent for the patient age. Paranasal sinuses and mastoid air cells within the [id number] are clear. IMPRESSIONS: 1. Acute hemorrhage extra-axial space adjacent to the anterior falx likely on the basis of a subdural hematoma. Report was called to the emergency room physician by Dr. Greer by telephone [phone] hours . 2. Atrophy with mild chronic appearing periventricular white matter ischemic-type changes CT cervical spine. COMPARISON: None TECHNIQUE: CT of the cervical spine is performed in the axial plane at 2 mm thick sections. Reconstr ucted images in the coronal, and sagittal plane are reviewed on the computer. FINDINGS: No acute fractures are evident. Vertebral body alignment is straightened. Diffuse loss of disc height is present throughout the cervical spine. There is patchy density throughout the cervical spine. Sclerotic and lytic areas may be present suspi cious for metastatic disease. This has extension into additional osseous structures including partial ly visualized left scapula and within multiple ribs. Heterogeneities within the manubrium. Correlate with the patient's history. Vertebral body heights are preserved. No spinal canal stenosis is evident. Some uncovertebral joint hypertrophy is contributing to foraminal narrowing C5-6 IMPRESSION: 1. No acute fracture is identified within the cervical spine. 2. Extensive lytic and sclerotic areas within the visualized osseous structures suspicious for metast atic disease. Correlate with the history [facility], , 10/14/2024 6:48 PM
--- NOTE | 2024-10-14 18:58 | CT ---
EXAMINATION TYPE: CT facial bones wo con DATE OF EXAM: 10/14/2024 6:35 PM COMPARISON: None. CLINICAL INDICATION: Female, 69 years old with history of Fall face first onto asphalt, Fall face fir st onto asphalt, swelling and lacs to nose and left side of face. TECHNIQUE: The paranasal sinuses are examined in the axial plane at 2 mm thick sections. Reconstruct ed images in the coronal plane were obtained. Contrast used: mL of , (none if empty) Oral contrast used: (none if empty) CT DLP: combined DLP 1034.3 mGycm, Automated exposure control for dose reduction was used. FINDINGS: No acute fractures are evident. Nasal bones are intact. Greater wings of the sphenoid and zygomatic a rches are intact. Maxillary spine is intact. Mandible and maxilla as visualized are normal. There is dental amalgam scatter artifact. The maxillary sinuses are clear. The ethmoid air cells are clear. The sphenoid sinuses are clear. The frontal sinuses are clear. The septum is evaluated. There is septal deviation to the right. The ostiomeatal units are patent. IMPRESSION: 1. No acute osseous abnormality radiographically apparent. [facility], , 10/14/2024 6:56 PM
[2024-10-14] MEDS: LIDOCAINE 4% CREAM 5 GM TUBE TOPICAL ONE (19:52)
[2024-10-14 21:21] VITALS: BP 134/86; PULSE 59; TEMP 98.3
== END 2024-10-14 21:21 | disposition other institution (70) ==
LOC: EC 16:51
DX: S06.5X0A Traumatic subdural hemorrhage without loss of consciousness, initial encounter (principal); S01.511A Laceration without foreign body of lip, initial encounter; C50.919 Malignant neoplasm of unspecified site of unspecified female breast; F17.200 Nicotine dependence, unspecified, uncomplicated; W01.0XXA Fall on same level from slipping, tripping and stumbling without subsequent striking against object, initial encounter; Y92.410 Unspecified street and highway as the place of occurrence of the external cause
CPT/HCPCS: 99285; 96374; 96376; 12013; 36415; 80053; 85025; 72125; 70486; 70450; J2003; J1171

== ENCOUNTER → 2024-11-21 | Outpatient (CLI) | payer MEDICARE, OTHER ==
[2024-11-21 10:47] LABS: African American GFR (CKD) >90 (>60 ml/min/1.73 sqM); Blood Urea Nitrogen 12 mg/dL (7-17); Non-African American GFR(CKD) >90 (>60 ml/min/1.73 sqM)
--- NOTE | 2024-11-21 14:37 | CT ---
EXAMINATION TYPE: CT chest w con DATE OF EXAM: 11/21/2024 11:23 AM COMPARISON: 09/02/2024, 06/10/2024 CLINICAL INDICATION: Female, 69 years old with history of C50.212 MALIG NEOPLASM OF UPPER-INNER QUADR ANT OF breast; [facility], follow up prior study TECHNIQUE: CT of the chest after IV contrast. Sagittal and coronal reformats were created for review. Contrast used:100 ml mL of Isovue [address] DLP: 359 mGycm, Automated exposure control for dose reduction was used. FINDINGS: The heart is upper limits of normal in size without pericardial effusion. Scattered three-vessel devora nary artery calcifications are present. Ectatic ascending aorta 3.8 cm. Mild atherosclerotic arch calcifications with conventional arch vesse l branching anatomy. Tortuous descending thoracic aorta. No thoracic lymphadenopathy by size criteria. No dominant breast mass is clearly identified though th ere is dense subareolar tissue, right greater than left. Medial left breast nodule measuring 7 mm unc hanged. Biapical pleural parenchymal scarring. Mild to moderate emphysematous change. There is some focal patchy groundglass density medial left upper lobe not seen previously. Similarly, some patchy subpleural density anterior left upper lobe, axial image 14. Strandy scarring at the lung bases. A 4 mm anterior right midlung pulmonary nodule, axial image 24, not seen previously Visualized upper abdomen shows numerous hypodense hepatic lesions, largest measuring 1.6 cm versus 1. 8 cm, previously. Similar bilateral adrenal thickening and dilatation of the main pancreatic duct. Bones: Diffuse osseous metastatic disease redemonstrated. IMPRESSION: 1. COPD with mild to moderate emphysema. There is some new focal groundglass infiltrate medial left u pper lobe and smaller focus subpleural anterior left upper lobe. Infectious/inflammatory foci includi ng the possibility of early pneumonia can be considered. 2. A 4 mm right midlung pulmonary nodule not well seen previously. Attention on follow-up to exclude an early metastatic pulmonary nodule. 3. Numerous small hepatic lesions redemonstrated. These are either stable or slightly smaller, larges t measuring 1.6 cm versus 1.8 cm, previously. 4. Known diffuse osseous metastatic disease. [facility], Workstation: [email or web address], 11/21/2024 2:34 PM
== END | disposition home or self-care (01) ==
LOC: RADCTMAIN 10:04
PROVIDERS: ATTEND Internal Medicine Hematology & Oncology
DX: C50.212 Malignant neoplasm of upper-inner quadrant of left female breast (principal); M87.80 Other osteonecrosis, unspecified bone; I10 Essential (primary) hypertension; F32.A Depression, unspecified; C79.51 Secondary malignant neoplasm of bone; K76.89 Other specified diseases of liver; R91.1 Solitary pulmonary nodule; J44.9 Chronic obstructive pulmonary disease, unspecified; J43.9 Emphysema, unspecified
CPT/HCPCS: 82565; 84520; 71260; 36415; Q9967

== ENCOUNTER → 2025-01-06 | Outpatient (CLI) | payer MEDICARE, OTHER ==
[2025-01-06 12:04] LABS: African American GFR (CKD) >90 (>60 ml/min/1.73 sqM); Blood Urea Nitrogen 15 mg/dL (7-17); Non-African American GFR(CKD) >90 (>60 ml/min/1.73 sqM)
--- NOTE | 2025-01-08 18:52 | CT ---
EXAMINATION TYPE: CT chest w con DATE OF EXAM: 01/06/2025 12:31 PM COMPARISON: 11/21/2024 CLINICAL INDICATION: Female, 69 years old with history of C50.212 BREAST CANCER, f/u breast ca TECHNIQUE: Axial images were obtained at 5 mm thick sections. Reconstructed images are reviewed on [employer] computer in the coronal plane. Contrast used:100 ml mL of Isovue 300 with IV Contrast, (none if empty) Oral contrast used: (none if empty) CT DLP: 140.1 mGycm, Automated exposure control for dose reduction was used. FINDINGS: Portion of the thyroid visualized is normal. There is a 0.5 cm density within the anterolateral right upper lung field. Series 4 image 32. Some ri ght perihilar infiltrate extending towards the pleural margin is present. Atelectatic type changes or infiltrate is above the right diaphragm. Correlate for pneumonia as well. These findings appear new from comparison. Subtle groundglass opacity in the anterior left upper lung field appears diminished from comparison. Previous 4 mm density anterior right midlung is not evident on current exam No enlarged mediastinal or hilar adenopathy is evident. The ascending aorta diameter at the level o f the main pulmonary artery is 3.9 cm. The main pulmonary artery diameter at the bifurcation is 2.6 cm. No significant coronary artery calcifications. Limited CT sections are obtained through the upper abdomen. Abdomen is essentially unremarkable. IMPRESSION: 1. New Right lower lobe infiltrate. Correlate for atelectasis or pneumonia. Follow-up to clearing is recommended. 2. Some new streaky densities in the periphery of the anterior lateral right lung with a maximum thic kness of 0.5 cm. Atelectasis and pneumonia are within the differential. [facility], , 01/08/2025 6:50 PM
== END | disposition home or self-care (01) ==
LOC: RADCTMAIN 11:18
PROVIDERS: ATTEND Internal Medicine Hematology & Oncology
DX: C50.212 Malignant neoplasm of upper-inner quadrant of left female breast (principal); R91.8 Other nonspecific abnormal finding of lung field; J98.4 Other disorders of lung; J98.11 Atelectasis
CPT/HCPCS: 82565; 84520; 71260; 36415; Q9967